=== PATIENT | male | born 1975 | race Caucasian/White ===

== ENCOUNTER 2020-07-17 20:23 | Emergency (ER) | payer SELFPAY ==
[~2020-07-17] VITALS: Ht 172.7 cm; Wt 85.8 kg
[2020-07-17] MEDS ORDERED: LIDOCAINE-MPF 1%, 5ML ONE (20:52)
[2020-07-17] MEDS ORDERED: DIPH,PERTUSS(ACELL),TET VAC/PF 0.5 ML IM-VACC ONE (21:00)
[2020-07-17] MEDS ORDERED: LIDOCAINE 1%-EPI 1:100K, 20ML SQ ONE (21:00)
--- NOTE | 2020-07-17 21:20 | NUR ---
shankar at bedside to repair laceration
[2020-07-17 22:30] VITALS: BP 133/94
[2020-07-17] MEDS ORDERED: CEFAZOLIN 1,000 MG IM ONE (22:30)
--- NOTE | 2020-07-17 22:44 | NUR ---
PT INFORMED OF NPO STATUS. HE VERBALIZES UNDERSTANDING.
[2020-07-17] MEDS ORDERED: OMNIPAQUE 350 MG/ML, 100ML BOTTLE ONE (23:14)
--- NOTE | 2020-07-17 23:18 | NUR ---
WAITING FOR DR LOUIS TO SEE PT
[2020-07-18] MEDS ORDERED: CEFAZOLIN 1,000 MG ONE (00:02)
== END 2020-07-18 00:09 | disposition home or self-care (01) ==
LOC: ED 23:13
DX: S02.40FB Zygomatic fracture, left side, initial encounter for open fracture (principal); S02.40DB Maxillary fracture, left side, initial encounter for open fracture; S02.19XB Other fracture of base of skull, initial encounter for open fracture; S01.111A Laceration without foreign body of right eyelid and periocular area, initial encounter; S09.90XA Unspecified injury of head, initial encounter; W22.8XXA Striking against or struck by other objects, initial encounter; Y93.89 Activity, other specified; Y92.410 Unspecified street and highway as the place of occurrence of the external cause; Y99.8 Other external cause status
CPT/HCPCS: 12052; 70486; 96372; 99284; J0690; Q9967

== ENCOUNTER 2020-07-23 12:51 | Emergency (ER) | payer SELFPAY ==
[~2020-07-23] VITALS: Ht 177.8 cm; Wt 81.6 kg
[2020-07-23 13:05] VITALS: BP 140/54
--- NOTE | 2020-07-23 13:09 | NUR ---
PT STATES RECENT METH USE, HIGH HR. PT DENIES ALL SX.
== END 2020-07-23 13:29 | disposition home or self-care (01) ==
LOC: ED 13:23
DX: S01.81XD Laceration without foreign body of other part of head, subsequent encounter (principal); Z48.02 Encounter for removal of sutures; F15.129 Other stimulant abuse with intoxication, unspecified; X58.XXXD Exposure to other specified factors, subsequent encounter
CPT/HCPCS: 99281; 99283